=== PATIENT | male | born 1945 | race Caucasian/White ===

== ENCOUNTER 2017-11-11 06:10 | Day surgery (SDC) | payer OTHER ==
[~2017-11-11] VITALS: Ht 172.7 cm; Wt 85.1 kg
[~2017-11-11 06:10] MED LIST: ASPI325T PO; ATOR40TA49 PO; GLIP10TA6 PO; GLUC1000 PO; LISI20 PO; OXYC1SOL5 PO; PANT40IN3 PO; PLAV75TA PO; TRAD5TAB PO
[2017-11-11] MEDS ORDERED: IOHEXOL 350 MG/ML 50 ML BTL (for Cath Lab) OTHER ONE (06:11)
[2017-11-11] MEDS ORDERED: IOHEXOL 350 MG/ML 100 ML BTL (for Cath Lab) OTHER ONE (06:11)
[2017-11-11] MEDS ORDERED: SODIUM CHLOR 0.9% 1000 ML INJ 1,000 ML IV SCH (06:45)
[2017-11-11 06:54] VITALS: BP 157/80; PULSE 94; RESP 18; TEMP 98.8; O2SAT 93
[2017-11-11] MEDS ORDERED: CLOP75TA PO (07:14)
[2017-11-11] MEDS ORDERED: PANT40TA3 PO (07:14)
[2017-11-11] MEDS ORDERED: LISI-515 PO (07:14)
[2017-11-11] MEDS ORDERED: ATOR40TA16 PO (07:14)
[2017-11-11] MEDS ORDERED: METF1000 PO (07:14)
[2017-11-11] MEDS ORDERED: GLIP10TA6 PO (07:14)
[2017-11-11] MEDS ORDERED: ASPI-516 CHEW (07:14)
[2017-11-11] MEDS ORDERED: LEVEMIR SQ (07:14)
[2017-11-11] MEDS ORDERED: diphenhydrAMINE HCL 50 MG/ML VIAL IV PUSH SCH (07:45)
[2017-11-11] MEDS ORDERED: HEPARIN-NS/PF INJ 1,500 ML ONE (09:04)
[2017-11-11] MEDS ORDERED: MIDAZOLAM HCL 2 MG/2 ML VIAL ONE ×2 (09:05→09:58)
[2017-11-11] MEDS ORDERED: diphenhydrAMINE HCL 50 MG/ML VIAL ONE (09:35)
[2017-11-11] MEDS ORDERED: HEPARIN SODIUM - IV 10,000 UNITS/10 ML VIAL ONE (09:44)
[2017-11-11] MEDS ORDERED: BIVALIRUDIN 250 MG VIAL ONE (09:47)
[2017-11-11] MEDS ORDERED: CLOPIDOGREL 300 MG TAB ONE (10:26)
[2017-11-11] MEDS ORDERED: BIVALIRUDIN INJ 250 MG in SODIUM CHLORIDE 0.9% INJ 50 ML IV SCH (10:36)
[2017-11-11] MEDS ORDERED: METO25TA3 PO (10:43)
[2017-11-11] MEDS ORDERED: oxyCODONE/ACETAMINOPHEN 5 MG/325 MG TAB PO PRN (10:45)
[2017-11-11] MEDS ORDERED: CLOPIDOGREL 300 MG TAB PO ONE (10:45)
[2017-11-11] MEDS ORDERED: LIDOCAINE HCL 1% 50 ML VIAL INFIL PRN (10:45)
[2017-11-11] MEDS ORDERED: oxyCODONE/ACETAMINOPHEN 10 MG/325 MG TAB PO PRN (10:45)
[2017-11-11] MEDS ORDERED: MISC INFORMATION XX ONE (10:45)
[2017-11-11] MEDS ORDERED: LORazepam 2 MG/ML VIAL IV PUSH PRN (10:45)
[2017-11-11] MEDS ORDERED: ACETAMINOPHEN 325 MG TAB PO PRN (10:45)
[2017-11-11] MEDS ORDERED: ATROPINE SULFATE 1 MG/ML VIAL IV PUSH PRN (10:45)
[2017-11-11] MEDS ORDERED: MORPHINE SULFATE 4 MG/ML INJ IV PUSH PRN (10:45)
--- NOTE | 2017-11-11 10:55 | CATHPROC ---
[facility] HIS Report Study Information Study Number Admission Scheduled Start Study Start [id number] Nov 11 2017 6:10AM 11/11/2017 Nov 11 2017 9:00AM [place] [facility] Cardiac Catheterization Admit Source Facility Department Other [facility] - Glass Blowing Lathe Operator Physician and Clinical Staff Initial Tyler Fischer Environmental Engineering Technician Bhupinder Ortega RN Recorder Luis Daniel Esqueda,RT(R) Foreign [place],RT(R) Procedures Performed Procedure Location (Site) Vessel Name Coronary Angiograms LCA Left Coronary Coronary Angiograms RCA Right Coronary Drug Eluting Inflatio CIRC Prox CIRC Drug Eluting Inflatio OM1 Mid CIRC Drug Eluting Inflatio RCA Dist Right Coronary PTCA OM1 Mid CIRC PTCA RCA Dist Right Coronary Wire insertion Fem Art (right) Femoral Art Equipment Time Decaler Description Size Mfg Part Number Used/Scraped COPILOT VALVE, BLEEDBACK [id number] 09:47 [employer] Used CONTROL *[id number] TRANSDUCER, TRUWAVE [id number] 09:17 YANG JOSUE * Used W/STOCKCOCK *[id number] 10:27 [facility] MEDICAL VASCADE, FR6 CLOSURE SYSTEM FR 6\\7 Used *[id number] [id number] *[id number] [phone] *[id number] [phone] *[id number] 09:17 [employer] INDUSTRIES PACK, CCL CUSTOM * Used *[id number] 09:17 [employer] PACER PEN, SKIN DUAL W/ RULER * Used *[id number] 09:54 [employer]ON[employer] BALLOON, 2.0 X 15MM EUPHORA 15MM Used *[id number] 09:38 [employer]TRON[employer] JR 4.0 DXTERITY CATHETER FR 5 [id number] Used [id number] 09:59 [employer]TR[employer]IC STENT, 2.25 18MM LENNY 2.25 18MM Used *[id number] 10:11 [employer] STENT, 2.25 18MM LENNY 2.25 18MM Used *[id number] [id number] 10:21 [employer]TR[employer]IC STENT, 2.5 18MM LENNY 2.5 18MM Used *[id number] 09:58 [employer] 30 ANGELA INDEFLATOR Used *[id number] 09:17 [employer] WIRE, 3MMJ .035 180CM 180CM Used *[id number] 09:17 NAMIC MANIFOLD, 4 PORT * Used *[id number] TUBING, PRESSURE MONITORING [id number] 09:26 NAMIC PACER 72" Used 72" *[id number] 09:17 [employer] OMNIPAQUE, 350 MG, 150ML 150ML [id number] Used [id number] 09:17 [employer]ES[employer] MED[employer] BLANKET,WARM AIR CCL * Used *[id number] 09:17 [employer]UM[employer] MEDICAL SHEATH, FR5 TERUMO (10CM) FR 5 Used *[id number] [id number] 09:47 [employer] MEDICAL SHEATH, FR6 TERUMO (10CM) FR 6 Used *[id number] [id number] 09:47 [employer] MEDICAL SHEATH, FR6 TERUMO (10CM) FR 6 Used *[id number] WIRE, RUNTHROUGH NS FLOPPY [id number] 09:47 [employer]UM[employer] MEDICAL 180CM Used .014 180CM *[id number] Equipment Model, Serial, Lot Number and Expiration Data Description Model Number Serial Number Lot Number Expiration Date STENT, 2.25 18MM LENNY [id number] 06-20-2019 STENT, 2.25 18MM LENNY [id number] 07-08-2019 STENT, 2.5 18MM LENNY [id number] 07-21-2019 History: Allergies Allergy Reaction No Known Allergies shellfish derived History: Risk Factors Family History of Hypertension Dyslipidemia Previous NH Previous Heart Failure Premature CAD Yes Yes No No No Prior Valve Prior PCI Prior CABG Surgery No No No Cerebrovascular Peripheral Artery Chronic Lung On Dialysis Diabetes Diabetes Therapy Disease Disease Disease No Yes Yes No Yes Oral History: Stress Tests Stress or Imaging Studies Performed No Labs Hgb (g/dl) Hct (%) WBC (l/cumm) Platelets (thousands) 11.60-17.00 35.00-51.00 4.00-11.00 150.00-450.00 13.3 41 6.1 244 Glucose (mg/dl) BUN (mg/dl) Creatinine (mg/dl) BUN:Creatinine (1:x) 74.00-106.00 7.00-18.00 0.50-1.30 10.00-20.00 271 17 1.0 17 Na (meq/l) K (meq/l) 136.00-145.00 3.50-5.10 140 4.8 CPK-MB (ng/ML) 0.50-3.60 Not Drawn Medication Medication Total Dose (Bolus/Oral) Medication Total Dosage/Unit 1% XYLOCAINE 20 mL ANGIOMAX BOLUS 13 mL FENTANYL 75 mcg PLAVIX 600 mg VERSED 3 mg Medications (Bolus/Oral) Medication Time Given Dosage/Unit Administered By Reason VERSED 11/11/2017 9:34:45 AM 2 mg Bhupinder Ortega 2 mg VERSED given in lab by Bhupinder Ortega RN in Left Antecubital via Peripheral IV. Ordered by Tyler Miguel. FENTANYL 11/11/2017 9:35:04 AM 50 mcg Bhupinder Ortega 50 mcg FENTANYL given in lab by Bhupinder Ortega RN in Left Antecubital via Peripheral IV. Ordered by Tyler Sanon. 1% XYLOCAINE 11/11/2017 9:37:01 AM 20 mL Tyler Sanon 20 mL 1% XYLOCAINE given in lab by Tyler Sanon in Right Groin via Subcutaneous. Ordered by Tyler Sanon. ANGIOMAX BOLUS 11/11/2017 9:50:25 AM 13 mL Bhupinder Ortega 13 mL ANGIOMAX BOLUS given in lab by Bhupinder Ortega RN via Peripheral IV. Ordered by Tyler Sanon. FENTANYL 11/11/2017 9:59:06 AM 25 mcg Bhupinder Ortega 25 mcg FENTANYL given in lab by Bhupinder Ortega RN via Peripheral IV. Ordered by Tyler Sanon. VERSED 11/11/2017 10:00:52 AM 1 mg Bhupinder Ortega 1 mg VERSED given in lab by Bhupinder Ortega RN via Peripheral IV. Ordered by Tyler Sanon. PLAVIX 11/11/2017 10:40:26 AM 600 mg Bhupinder Ortega 600 mg PLAVIX given in lab by Bhupinder Ortega RN via Oral. Ordered by Tyler Sanon. Medication (Drip) Medication Time Given Dosage/Unit Concentration/Unit Diluent (ml) Solution ANGIOMAX DRIP 11/11/2017 9:52:14 AM 1.75 mg/kg/hr 250 mg 50 NaCl .9 1.75 mg/kg/hr ANGIOMAX DRIP given in lab by Bhupinder Ortega, VALDEZ in Left Antecubital via Peripheral IV. Pump/Drip Flow = 29.75 ml/hr using NaCl .9 with a concentration of 250 mg in 50 ml. Ordered by Tyler Sanon. ANGIOMAX DRIP 11/11/2017 9:54:45 AM 1.75 mg/kg/hr 250 mg 50 NaCl .9 1.75 mg/kg/hr ANGIOMAX DRIP given in lab by Bhupinder Ortega, VALDEZ in Left Antecubital via Peripheral IV. Pump/Drip Flow = 29.75 ml/hr using NaCl .9 with a concentration of 250 mg in 50 ml. Ordered by Tyler Sanon. IV Solutions 11/11/2017 9:12:43 AM 0 mL (IV) 500 NaCl .9 Patient arrived on IV Solutions given by Tyler Sanon in Left Antecubital via Peripheral IV. Pump/D rip Flow = 20 ml/hr using NaCl .9. Ordered by Tyler Sanon. Initial Case Assessment Cardiovascular HR Rhythm NIBP 68 sr 144/88 Edema Present Skin color Skin None Normal Warm Dry Circulatory - Right Pulses Dorsalis Pedis Posterior Tibial Femoral d d 2 Scale (0,1,2,3,4,d) Circulatory - Left Pulses Dorsalis Pedis Posterior Tibial Femoral d d 2 Scale (0,1,2,3,4,d) Neurological State Oriented to time-place- Alert Moves all extremities person Respiration - General Respiration Rate SpO2 (%) O2 (lpm) (B/min) 18 96 0 Final Case Assessment Cardiovascular HR Rhythm NIBP Chest Pain 90 sr 148/86 0 Edema Present Skin color Skin None Normal Warm Dry Circulatory - Right Pulses Dorsalis Pedis Posterior Tibial Femoral d d 2 Scale (0,1,2,3,4,d) Circulatory - Left Pulses Dorsalis Pedis Posterior Tibial Femoral d d 2 Scale (0,1,2,3,4,d) Neurological State Oriented to time-place- Alert Moves all extremities person Respiration - General Respiration Rate SpO2 (%) O2 (lpm) (B/min) 18 98 0 Chronological Log Time Study Chronological Log 9:00:39 Patient arrived via Bed. 9:00:41 Patient Name, D.O.B, / Armband Verified By R.N. 9:00:42 Consent signed by the physician and the patient and verified by the Glass Blowing Lathe Operator staff. 9:00:43 Pre-op and post- op instructions given; patient acknowledges understanding of instructions. 9:01:23 Verbal Stimulation=2 Physical Stimulation=2 Airway=2 Respiration=2 TOTAL=8. (0=absent, 1=li mited, 2=present) 9:01:35 Presedation assessment performed by Glass Blowing Lathe Operator RN. 9:01:37 Patient has been NPO for More than 6Hrs. Vitals capture started with the following parameters, Patient=Adult, Interval=5 min, Initial Pr fpzgth=906 mmHg, 9:03:51 Deflation Rate=5 mmHg, Cuff placed on Right Arm 9:05:09 HR=82 bpm, QMWH=317/80 mmhg, SpO2=96.0 %, Resp=5 B/min, Smith=2 9:10:12 HR=64 bpm, IEWN=731/74 mmhg, SpO2=95.0 %, Resp=12 B/min, Smith=2 9:12:12 Reference ECG taken 9:12:35 A # 20 IV was noted in the Antecubital (left). Grade = 0 Patient arrived on IV Solutions given by Tyler Sanon in Left Antecubital via Peripheral IV. Pump/Drip Flow = 20 9:12:43 ml/hr using NaCl .9. Ordered by Tyler Sanon. 9:13:06 History and physical on the chart or being dictated. Assessment: Initial Case, HR=68 BPM, Rhythm=sr, AIJW=104/88 mmhg, Edema=None, Color=Normal, Skin = Warm, Dry Right Pulses: Lennox Ped=d, Post Tib=d, Femoral=2 9:13:09 Left Pulses: Lennox Ped=d, Post Tib=d, Femoral=2 Neurological: State=Alert, Ox3, CASTELLANO Respiration: Resp=18 B/min, SpO2=96 %, O2=0 lpm 9:13:43 Bilateral groins prepped with 2% chlorhexidine, and draped after a 3 minute waiting time. 9:15:25 HR=61 bpm, UKOE=091/69 mmhg, SpO2=97.0 %, Resp=22 B/min, Smith=2 9:18:55 Pressure channel 1 zeroed. 9:19:39 HR=76 bpm, BBRD=075/72 mmhg, SpO2=97.0 %, Resp=12 B/min, Smith=2 9:24:40 HR=57 bpm, DHBC=042/70 mmhg, SpO2=98.0 %, Resp=11 B/min, Smith=2 9:29:39 HR=58 bpm, VRZV=834/74 mmhg, SpO2=98.0 %, Resp=11 B/min, Smith=2 9:33:13 MD arrived. 9:34:41 HR=93 bpm, UJDO=869/63 mmhg, SpO2=96.0 %, Resp=30 B/min, Smith=2 9:34:45 2 mg VERSED given in lab by Bhupinder Ortega, VALDEZ in Left Antecubital via Peripheral IV. Ordere d by Tyler Sanon. 9:35:04 50 mcg FENTANYL given in lab by Bhupinder Ortega, VALDEZ in Left Antecubital via Peripheral IV. Or dered by Tyler Sanon. Time Out. Correct patient, correct procedure, correct physician, power not loaded with contrast with surgical team 9:36:33 present. Time Out Concurred by MD and individual staff in procedure. Not loaded at this time. 9:36:57 Presedation re-assessment performed by Glass Blowing Lathe Operator RN. 9:36:59 Case Start 9:37:01 20 mL 1% XYLOCAINE given in lab by Tyler Sanon in Right Groin via Subcutaneous. Ordered b y Tyler Sanon. 9:37:30 Access site was Right Femoral Artery. 9:37:47 A SHEATH, FR5 TERUMO (10CM) FR 5 was advanced into the Fem Art (right) using the Percutaneou s technique. A JL 4.0 INFINITI CATHETER FR 4 was advanced over a wire. OMNIPAQUE, 350 MG, 150ML 150ML was use d for 9:38:07 injections. 9:39:35 HR=79 bpm, VIIV=077/64 mmhg, SpO2=89.0 %, Resp=12 B/min, Smith=2 Recorded Pressure: Ao, HR=80, Condition=Condition 1 9:40:42 (Aorta) Ao 109/53/77 9:40:53 The LCA was injected and visualized at various angles. OMNIPAQUE, 350 MG, 150ML 150ML used. 9:42:26 Catheter was removed A JR 4.0 DXTERITY CATHETER FR 5 was advanced over a wire. OMNIPAQUE, 350 MG, 150ML 150ML was use d for 9:43:49 injections. 9:45:09 The RCA was injected and visualized at various angles. OMNIPAQUE, 350 MG, 150ML 150ML used. 9:45:11 HR=86 bpm, DCNO=034/72 mmhg, SpO2=93.0 %, Resp=14 B/min, Smith=2 9:46:21 Catheter was removed A SHEATH, FR6 TERUMO (10CM) FR 6 was exchanged in the Fem Art (right). This was necessary in ord er to 9:47:05 accomodate a larger catheter. 9:49:36 HR=83 bpm, UIYU=927/65 mmhg, SpO2=93.0 %, Resp=14 B/min, Smith=2 9:50:25 13 mL ANGIOMAX BOLUS given in lab by Bhupinder Ortega RN via Peripheral IV. Ordered by Tyler Sanon. A XB 3.5 GUIDE CATHETER FR 6 was advanced over a wire. OMNIPAQUE, 350 MG, 150ML 150ML was used f or 9:51:22 injections. 1.75 mg/kg/hr ANGIOMAX DRIP given in lab by Bhupinder Ortega, VALDEZ in Left Antecubital via Periphera l IV. Pump/Drip Flow 9:52:14 = 29.75 ml/hr using NaCl .9 with a concentration of 250 mg in 50 ml. Ordered by Tyler Sanon. 9:54:37 HR=80 bpm, MQGP=371/64 mmhg, SpO2=93.0 %, Resp=14 B/min, Smith=2 1.75 mg/kg/hr ANGIOMAX DRIP given in lab by Bhupinder Ortega, VALDEZ in Left Antecubital via Periphera l IV. Pump/Drip Flow 9:54:45 = 29.75 ml/hr using NaCl .9 with a concentration of 250 mg in 50 ml. Ordered by Tyler Sanon. 9:54:52 A WIRE, RUNTHROUGH NS FLOPPY .014 180CM 180CM was inserted via Fem Art (right). 9:56:53 Interventional wire has crossed the lesion A BALLOON, 2.0 X 15MM EUPHORA 15MM was inserted over WIRE, RUNTHROUGH NS FLOPPY .014 180CM 180C M via 9:57:20 the OM1 Mid. A BALLOON, 2.0 X 15MM EUPHORA 15MM over a WIRE, RUNTHROUGH NS FLOPPY .014 180CM 180CM in the OM 1 Mid 9:57:40 was inflated using a 30 ANGELA INDEFLATOR at 10 angela for 20 sec. 9:59:06 25 mcg FENTANYL given in lab by Bhupinder Ortega, RN via Peripheral IV. Ordered by Anuj Sanon. 9:59:38 HR=83 bpm, OZJK=454/67 mmhg, SpO2=93.0 %, Resp=15 B/min, Smith=2 9:59:52 Balloon Removed. A STENT, 2.25 18MM LENNY 2.25 18MM was advanced through a XB 3.5 GUIDE CATHETER FR 6 over a WIRE , 10:00:02 RUNTHROUGH NS FLOPPY .014 180CM 180CM. A STENT, 2.25 18MM LENNY 2.25 18MM was deployed using a 30 ANGELA INDEFLATOR at 12 atmospheres for 15 seconds 10:00:15 in the OM1 Mid. 10:00:52 1 mg VERSED given in lab by Bhupinder Ortega, VALDEZ via Peripheral IV. Ordered by Tyler Sanon . 10:02:13 Delivery device removed 10:04:37 HR=85 bpm, ILNR=924/76 mmhg, SpO2=94.0 %, Resp=12 B/min, Smith=2 10:09:38 HR=85 bpm, GGEU=989/77 mmhg, SpO2=94.0 %, Resp=14 B/min, Smith=2 A STENT, 2.25 18MM LENNY 2.25 18MM was advanced through a XB 3.5 GUIDE CATHETER FR 6 over a WIRE , 10:10:43 RUNTHROUGH NS FLOPPY .014 180CM 180CM. A STENT, 2.25 18MM LENNY 2.25 18MM was deployed using a 30 ANGELA INDEFLATOR at 14 atmospheres for 13 seconds 10:10:59 in the CIRC Prox. 10:13:19 Delivery device removed 10:13:27 Wire removed 10:13:30 Catheter was removed A JR 4.0 GUIDE CATHETER FR 6 was advanced over a wire. OMNIPAQUE, 350 MG, 150ML 150ML was used for 10:16:04 injections. 10:16:09 HR=90 bpm, PCVV=169/115 mmhg, SpO2=96.0 %, Resp=15 B/min, Smith=2 Recorded Pressure: LV, Ao, HR=99, Condition=Condition 1 10:16:23 (Left Ventricle) LV 169/3/26, (Aorta) Ao 156/70/111 10:17:11 A WIRE, RUNTHROUGH NS FLOPPY .014 180CM 180CM was inserted via Fem Art (right). 10:18:45 Interventional wire has crossed the lesion A BALLOON, 2.0 X 15MM EUPHORA 15MM was inserted over WIRE, RUNTHROUGH NS FLOPPY .014 180CM 180C M via 10:18:52 the RCA Dist. A BALLOON, 2.0 X 15MM EUPHORA 15MM over a WIRE, RUNTHROUGH NS FLOPPY .014 180CM 180CM in the RC A Dist 10:19:05 was inflated using a 30 ANGELA INDEFLATOR at 8 angela for 20 sec. 10:19:42 HR=89 bpm, ZEDV=752/101 mmhg, SpO2=96.0 %, Resp=18 B/min, Smith=2 10:20:50 Balloon Removed. A STENT, 2.5 18MM LENNY 2.5 18MM was advanced through a JR 4.0 GUIDE CATHETER FR 6 over a WIRE, 10:21:23 RUNTHROUGH NS FLOPPY .014 180CM 180CM. A STENT, 2.5 18MM LENNY 2.5 18MM was deployed using a 30 ANGELA INDEFLATOR at 14 atmospheres for 10 seconds in 10:21:37 the RCA Dist. 10:22:23 Delivery device removed 10:23:17 Wire removed 10:23:34 Catheter was removed 10:24:21 An injection in the Fem Art (right) was made through the SHEATH, FR6 TERUMO (10CM) FR 6. 10:24:41 HR=90 bpm, YHVN=453/84 mmhg, SpO2=97.0 %, Resp=18 B/min, Smith=2 10:28:05 VASCADE, FR6 CLOSURE SYSTEM FR 6\\7 placement in the Fem Art (right) Assessment: Final Case, HR=90 BPM, Rhythm=sr, JMOW=490/86 mmhg, Chest Pain=0, Edema=None, Duncan r=Normal, Skin = Warm, Dry Right Pulses: Lennox Ped=d, Post Tib=d, Femoral=2 10:29:21 Left Pulses: Lennox Ped=d, Post Tib=d, Femoral=2 Neurological: State=Alert, Ox3, CASTELLANO Respiration: Resp=18 B/min, SpO2=98 %, O2=0 lpm 10:29:42 HR=92 bpm, IQXT=748/86 mmhg, SpO2=96.0 %, Resp=19 B/min, Smith=2 10:32:20 Catheter(s) removed without difficulty 10:32:22 Case End 10:32:24 Sterile dressing applied to site 10:32:26 No case complications noted. 10:32:27 Cine recording checked. 10:32:29 Bedside Report will be given. 10:32:31 Implantable Device card placed in patient's chart. 10:32:33 Contrast Scanned 10:34:45 HR=93 bpm, TASL=671/119 mmhg, Resp=10 B/min, Smith=2 10:36:00 [facility] 10[facility]40[facility] 600 mg PLAVIX given in lab by Bhupinder Ortega, VALDEZ via Oral. Ordered by Tyler Sanon. End Study - Contrast Media Used In Study Contrast Total Opened (mL) Total Used (mL) Total Wasted (mL) Omnipaque 130 130 0 End Study - Maximum Contrast Load Max Contrast Load (mL) 425.0 End Study - Radiation Exposure Fluoro Time (minutes) 9.3 End Study - Patient Disposition Complications Transferred To Telemetry Bed
[2017-11-11] MEDS ORDERED: BACITRACIN OINT 0.9 GM PKT TOP ONE (11:00)
--- NOTE | 2017-11-11 11:20 | EKG ---
Date Performed: 11/11/2017 Time Performed: 07:04:48 PTAGE: 72 years EKG: Sinus rhythm with 1st degree A-V block. Indeterminate axis Abnormal ECG NO PREVIOUS TRACING DOCTOR: Tadeo Sanders Interpretating Date/Time 11/11/2017 11:18:43
--- NOTE | 2017-11-11 11:31 | MA ---
cc: MARYA SOTO DATE 11/11/2017 PROCEDURE PERFORMED 1. Fluoroscopy with interruption. 2. Coronary angiography 3. Percutaneous intervention with drug-eluting stents to the left circumflex coronary artery, first obtuse marginal branch, and posterolateral branch. 4. Left heart catheterization. METHOD The risks, benefits and alternatives discussed with the patient, the patient understood and consented to the procedure. PROCEDURE The patient brought into the catheterization lab, placed on the catheterization table. The right groin was prepped and draped in a sterile fashion. The right groin was anesthetized with 2% lidocaine, right common femoral is cannulated and a 5-Rwandan 11 cm sheath was placed without difficulty. CORONARY ANGIOGRAPHY 1. Left main coronary has a 40% stenosis in the mid to distal segment. There is some eccentric calcium present with a slight hazy appearance. It does not appear to have any high-grade obstructive disease. Overall, his general coronary anatomy is smaller caliber size vessels. In left main in comparison, he seems to have a reasonable luminal area. 2. Left anterior descending coronary artery has only minor luminal irregularities and gives rise to moderate-sized diagonal branch with minor luminal irregularities. 3. Left circumflex has a 75% proximal stenosis and an 80% tubular stenosis in the first obtuse marginal branch. 4. Right coronary artery is a dominant vessel giving rise to a posterior descending branch as a larger posterolateral branch which has a 90% proximal-mid stenosis. PERCUTANEOUS INTERVENTION The left groin was selectively engaged with a 6-Rwandan XB 3.5 guide catheter. A 0.014 inch, 180 cm Terumo run-through wire was navigated down the distal first obtuse marginal branch. A 2.0 x 15 mm RX balloon was deployed in the first obtuse marginal branch. Repeat angiography still shows severe residual stenosis. A 2.25 x 18 mm RX Resolute drug-eluting stent was advanced down the first obtuse marginal branch and deployed. A 2.25 x 18 mm RX Resolute drug-eluting stent was advanced down the proximal left circumflex coronary artery and deployed. Repeat angiography showed no residual stenosis. The left main looked unchanged compared to the diagnostic angiogram. The attention was then directed towards the right coronary artery. Right coronary selectively engaged with a 6-Rwandan JR-4 guide catheter. A 0.014 x 180 cm Terumo run-through wire was navigated down to the distal posterolateral branch. A 2.0 x 15 mm RX balloon was advanced down to the posterolateral branch and deployed. Repeat angiography shows severe residual stenosis 2.25 x 18 mm RX Resolute drug-eluting stent was advanced down the posterolateral branch and deployed. Repeat angiography showed no residual stenosis, OLVIN-III flow. The guide catheter was removed. The wire removed. The right groin sheath was then closed with a Vascade closure device with good hemostasis. Angiomax was administered throughout the entire procedure to maintain appropriate anticoagulation. LEFT HEART CATHETERIZATION Intraventricular hemodynamics measured 169/3 mmHg. CONCLUSION 1. Severe circumflex and posterolateral branch vessel stenosis. 2. Successful percutaneous intervention with drug-eluting stents to the first obtuse marginal branch extending back to the proximal left circumflex coronary artery. 3. Successful percutaneous intervention with drug-eluting stent to the posterolateral branch up 4. Normal left-sided filling pressures. PLAN We will monitor the patient closely for any post procedural complications. Continue with his Plavix that he takes on a regular basis. We will start a low-dose beta kym as his blood pressure and heart rate will tolerate. We will continue him on aspirin, statin, MONICA inhibitor therapy. Given the contrast administered and time taken for the coronary revascularization, we decided not to proceed with peripheral angiography or intervention. We will let him make a full recovery and bring him back electively to investigate the lower extremities with angiogram and possible intervention. MD ANUPAM Faulkner/SEGUNDO /10:42 AM /11:09 AM
[2017-11-11] MEDS ORDERED: ISOS30TA3 PO (12:29)
[2017-11-11] MEDS ORDERED: TEMAZEPAM 15 MG CAP PO PRN (21:00)
[2017-11-12] MEDS ORDERED: CLOPIDOGREL 75 MG TAB PO SCH (09:00)
[2017-11-12] MEDS ORDERED: ASPIRIN 81 MG CHEW TAB PO SCH (09:00)
--- NOTE | 2017-11-12 15:02 | EKG ---
Date Performed: 11/11/2017 Time Performed: 12:31:56 PTAGE: 72 years EKG: Sinus rhythm with 1st degree A-V block. Indeterminate axis Abnormal ECG Since PREVIOUS TRACING , no significant change noted PREVIOUS TRACIN11/11/2017 07.04 DOCTOR: Ashkan Gates Interpretating Date/Time 11/12/2017 15:01:10
== END 2017-11-11 17:33 | disposition home or self-care (01) ==
LOC: HCAT 06:10 → HDIC 06:11 → HCAT 17:33
PROVIDERS: ATTEND Internal Medicine
DX: I25.10 Atherosclerotic heart disease of native coronary artery without angina pectoris (principal); I73.9 Peripheral vascular disease, unspecified; R07.9 Chest pain, unspecified; I44.0 Atrioventricular block, first degree; Z87.891 Personal history of nicotine dependence; E11.51 Type 2 diabetes mellitus with diabetic peripheral angiopathy without gangrene; I10 Essential (primary) hypertension; E78.5 Hyperlipidemia, unspecified; R09.89 Other specified symptoms and signs involving the circulatory and respiratory systems; Z79.4 Long term (current) use of insulin
CPT/HCPCS: 86850; 86900; 86901; 92920; 92921; 93005; 93458; 99152; 99153; C1725; C1760; C1769; C1874; C1887; C1893; G0269; J0583; J1200; J1644; J2250; J3010; Q9967

== ENCOUNTER 2017-12-30 07:25 | Day surgery (SDC) | payer OTHER ==
[~2017-12-30] VITALS: Ht 172.7 cm; Wt 86.7 kg
[~2017-12-30 07:25] MED LIST changes: +ASPI-516 CHEW; -ASPI325T PO; +ATOR40TA16 PO; -ATOR40TA49 PO; +CLOP75TA PO; -GLUC1000 PO; +ISOS30TA3 PO; +LEVEMIR SQ; +LISI-515 PO; -LISI20 PO; +METO25TA3 PO; -OXYC1SOL5 PO; -PANT40IN3 PO; +PANT40TA3 PO; -PLAV75TA PO; -TRAD5TAB PO
[2017-12-30] MEDS ORDERED: IOHEXOL 350 MG/ML 100 ML BTL (for Cath Lab) OTHER ONE (07:26)
[2017-12-30] MEDS ORDERED: SODIUM CHLORIDE 0.9% FLUSH 10 ML FLUSH IV FLUSH PRN ×2 (07:45)
[2017-12-30] MEDS ORDERED: diphenhydrAMINE HCL 50 MG CAP PO SCH (07:45)
[2017-12-30 08:19] VITALS: BP 147/72; PULSE 85; RESP 18; TEMP 98.4; O2SAT 94
[2017-12-30] MEDS ORDERED: MULTTAB67 PO (08:23)
[2017-12-30] MEDS ORDERED: METF1000 PO (08:23)
[2017-12-30] MEDS ORDERED: HEPARIN-NS/PF FLUSH BAG 1,000 ML IV FLUSH ONE (11:13)
[2017-12-30] MEDS ORDERED: MIDAZOLAM HCL 2 MG/2 ML VIAL ONE ×2 (11:14→12:25)
[2017-12-30] MEDS ORDERED: HEPARIN SODIUM - IV 10,000 UNITS/10 ML VIAL ONE (11:17)
[2017-12-30] MEDS ORDERED: diphenhydrAMINE HCL 50 MG/ML VIAL ONE (11:56)
[2017-12-30] MEDS ORDERED: ONDANSETRON HCL 4 MG/2 ML VIAL IV PUSH PRN (13:15)
[2017-12-30] MEDS ORDERED: METOCLOPRAMIDE HCL 10 MG/2 ML VIAL IV PUSH PRN (13:15)
[2017-12-30] MEDS ORDERED: oxyCODONE/ACETAMINOPHEN 10 MG/325 MG TAB PO PRN (13:15)
[2017-12-30] MEDS ORDERED: MISC INFORMATION XX ONE (13:15)
[2017-12-30] MEDS ORDERED: SODIUM CHLOR 0.9% 250 ML INJ 250 ML IV PRN (13:15)
[2017-12-30] MEDS ORDERED: oxyCODONE/ACETAMINOPHEN 5 MG/325 MG TAB PO PRN (13:15)
[2017-12-30] MEDS ORDERED: LORazepam 2 MG/ML VIAL IV PUSH PRN (13:15)
[2017-12-30] MEDS ORDERED: ATROPINE SULFATE 1 MG/ML VIAL IV PUSH PRN (13:15)
[2017-12-30] MEDS ORDERED: LIDOCAINE HCL 1% 50 ML VIAL INFIL PRN (13:15)
--- NOTE | 2017-12-30 13:31 | CATHPROC ---
[employer] HIS Report Study Information Study Number Admission Scheduled Start Study Start [id number] Dec 30 2017 7:25AM 12/30/2017 Dec 30 2017 10:54AM [place] Service Cath Endovascular Study Admit Source Facility Department Other [facility] - Interior Design Director Physician and Clinical Staff Initial Tyler Fischer District Wildlife Manager Mariela Carney,RN District Wildlife ManagerBhupinder Mcleod,VALDEZ Recorder [place], Leida,TANK BUILDER TECH2 Scrub Hansel, Foreign,RT(R) Procedures Performed Procedure Location (Site) Vessel Name Angiogram (manual) Fem Sup. (right) Femoral Art Angiogram (manual) Popliteal R (R10) Popliteal Angiogram (manual) Tib, Post (right) Popliteal Angiogram LV Abd Aorta (A3) Aorta NON ACOUSTIC OPERATOR Popliteal R (R10) Popliteal Wire insertion Fem Art (left) Femoral Art Equipment Time Health Information Assistant Description Size Mfg Part Number Used/Scraped DBP- CARDIOVASCULAR CATHETER, STEALTH CLASSIC 12:26 [id number] Used SYSTEMS INC. 2.0MM *[id number] CARDIOVASCULAR VPR-[id number] 12:19 WIRE, FIRM (VIPER) 335 Used SYSTEMS INC. *[id number] 13:14 CARDIVA MEDICAL VASCADE, FR6 CLOSURE SYSTEM FR 6\\7 Used *[id number] 11:02 CORDIS/ GENI RIM SUPER TORQUE CATHETER FR 5 Used *[id number] *[id number] ENDOVASCULAR [id number] 12:51 STENT, EVERFLEX 7 X 100 120CM 7 X 100 Used COMPANY 120 BALLOON, ADMIRAL EXTREME 6 [id number] 12:39 [employer] 130CM Used X 80 130CM *[id number] BALLOON, ADMIRAL IN.PACT 6 X [id number] 12:45 [employer] 130CM Used 60 130CM *[id number] CATHETER, FR5 TRAILBLAZER [id number] 12:19 [employer] 135CM Used .035 *[id number] 11:02 MALLINCKRODT SYRINGE, ANGIOMAT 150ML 150ML [id number] Used [id number] 11:02 MEDLINE INDUSTRIES PACK, CCL CUSTOM * Used *[id number] 11:02 MEDLINE PACER PEN, SKIN DUAL W/ RULER * Used *[id number]- 12:58 Plastio MEDICAL SHEATH, FR6.5 PRELUDE 11CM FR 6.5 038ACT Used *[id number] 11:02 Plastio MEDICAL WIRE, EXCHANGE 260CM 3MMJ 260CM Used *[id number] 11:02 NAMIC MANIFOLD, 4 PORT * Used *1027275 [id number] 11:02 NAMIC TUBING, HIGH PRESSURE 48" 48" Used *[id number] 11:02 NYCOMED OMNIPAQUE, 300 MG, 150ML 150ML [id number] Used [id number] 11:02 [facility] [place],WARM AIR CCL * Used *[id number] JSV030 11:02 TERUMO MEDICAL SHEATH, FR5 TERUMO (10CM) FR 5 Used *[id number] SHEATH, FR6 PINNACLE [id number] 12:18 TERUMO MEDICAL/GENI FR 6 Used DESTINATION 45CM *[id number] WIRE, ANGLE GLIDE STIFF .035 [id number] 11:02 TERUMO MEDICAL/GENI 260CM Used 260CM *[id number] Equipment Model, Serial, Lot Number and Expiration Data Description Model Number Serial Number Lot Number Expiration Date CATHETER, FR5 TRAILBLAZER .035 [id number] 07-17-2020 STENT, EVERFLEX 7 X 100 120CM [id number] 07-30-2019 WIRE, FIRM (VIPER) 335 [id number] 08-23-2019 History: Current Medications Medication Dosage/Unit Route Frequency Last Date/Time Taken Glucophage Insulin LISINOPRIL LOPRESSOR Statins (any) Imdur ASA PLAVIX History: Allergies Allergy Reaction No Known Allergies shellfish derived History: Risk Factors Family History of Hypertension Dyslipidemia Previous [place] Previous Heart Failure Premature CAD Yes Yes No No No Prior Valve Prior PCI Prior CABG Surgery No No No Cerebrovascular Peripheral Artery Chronic Lung On Dialysis Diabetes Diabetes Therapy Disease Disease Disease No Yes Yes No Yes Oral History: Stress Tests Stress or Imaging Studies Performed No Labs Hgb (g/dl) Hct (%) WBC (l/cumm) Platelets (thousands) 11.60-17.00 35.00-51.00 4.00-11.00 150.00-450.00 12.5 38.2 9 301 Glucose (mg/dl) BUN (mg/dl) Creatinine (mg/dl) BUN:Creatinine (1:x) 74.00-106.00 7.00-18.00 0.50-1.30 10.00-20.00 166 35 1.2 29.2 Na (meq/l) K (meq/l) 136.00-145.00 3.50-5.10 143 4.4 Medication Medication Total Dose (Bolus/Oral) Medication Total Dosage/Unit 1% XYLOCAINE 20 mL BENADRYL 25 mg FENTANYL 75 mcg HEPARIN 5000 units NTG (IC) 700 mcg VERSED 3 mg Medications (Bolus/Oral) Medication Time Given Dosage/Unit Administered By Reason BENADRYL 12/30/2017 11:57:45 AM 25 mg Tyler Sanon 25 mg BENADRYL given in lab by Tyler Sanon in Left Antecubital via Peripheral IV. Ordered by Tyler Sanon. VERSED 12/30/2017 12:02:22 PM 2 mg FerlittoMarandaey 2 mg VERSED given in lab by Bhupinder Ortega RN in Left Antecubital via Peripheral IV. Ordered by Tyler Miguel. FENTANYL 12/30/2017 12:02:58 PM 50 mcg ZeeoBhupinder 50 mcg FENTANYL given in lab by Bhupinder Ortega RN in Left Antecubital via Peripheral IV. Ordered by Tyler Sanon. 1% XYLOCAINE 12/30/2017 12:05:55 PM 20 mL Tyler Sanon 20 mL 1% XYLOCAINE given in lab by Tyler Sanon in Left Groin via Subcutaneous. Ordered by Elaine Sanon. HEPARIN 12/30/2017 12:21:40 PM 5000 units Bhupinder Ortega 5000 units HEPARIN given in lab by Bhupinder Ortega RN in Left Antecubital via Peripheral IV. Ordered by Tyler Sanon. VERSED 12/30/2017 12:26:34 PM 1 mg Ferlitto, Bhupinder 1 mg VERSED given in lab by Bhupinder Ortega RN in Left Antecubital via Peripheral IV. Ordered by Tyler Miguel. FENTANYL 12/30/2017 12:26:54 PM 25 mcg Ferlitto, Bhupinder 25 mcg FENTANYL given in lab by Bhupinder Ortega RN in Left Antecubital via Peripheral IV. Ordered by Tyler Sanon. NTG (IC) 12/30/2017 12:30:53 PM 200 mcg Tyler Sanon 200 mcg NTG (IC) given in lab by Tyler Sanon via Intra-arterial. Ordered by Tyler Sanon. NTG (IC) 12/30/2017 12:34:25 PM 300 mcg Tyler Sanon 300 mcg NTG (IC) given in lab by Tyler Sanon via Intra-arterial. Ordered by Tyler Sanon. NTG (IC) 12/30/2017 12:40:17 PM 200 mcg Tyler Sanon 200 mcg NTG (IC) given in lab by Tyler Sanon via Intra-arterial. Ordered by Tyler Sanon. Medication (Drip) Medication Time Given Dosage/Unit Concentration/Unit Diluent (ml) Solution IV Solutions 12/30/2017 11:04:25 AM 0 mL (IV) 500 NaCl .9 Patient arrived on IV Solutions in Left Antecubital via Peripheral IV. Pump/Drip Flow = 20 ml/hr usin g NaCl .9. Initial Case Assessment Cardiovascular HR Rhythm NIBP Chest Pain 58 sr 160/73 0 Circulatory - Right Pulses Dorsalis Pedis Posterior Tibial Femoral d d 1 Scale (0,1,2,3,4,d) Circulatory - Left Pulses Dorsalis Pedis Posterior Tibial Femoral d d 1 Scale (0,1,2,3,4,d) Neurological State Oriented to time-place- Alert Moves all extremities person Respiration - General Respiration Rate SpO2 (%) (B/min) 12 96 Final Case Assessment Cardiovascular HR Rhythm NIBP Chest Pain 60 sr 136/71 0 Circulatory - Right Pulses Dorsalis Pedis Posterior Tibial Femoral d d 1 Scale (0,1,2,3,4,d) Circulatory - Left Pulses Dorsalis Pedis Posterior Tibial Femoral d d 1 Scale (0,1,2,3,4,d) Neurological State Oriented to time-place- Alert Moves all extremities person Respiration - General Respiration Rate SpO2 (%) (B/min) 13 96 Chronological Log Time Study Chronological Log 11:03:18 Patient arrived via Bed. Patient premedicated with prednisone. 11:03:19 Patient Name, D.O.B, / Armband Verified By R.N. 11:03:20 Consent signed by the physician and the patient and verified by the Interior Design Director staff. 11:03:21 Pre-op and post- op instructions given; patient acknowledges understanding of instructions. 11:03:22 Verbal Stimulation=2 Physical Stimulation=2 Airway=2 Respiration=2 TOTAL=8. (0=absent, 1=li mited, 2=present) 11:03:33 Anesthesia at bedside. Assumes care of patient. 11:03:34 Presedation assessment performed by Interior Design Director RN. 11:03:37 Patient has been NPO for More than 6Hrs. 11:03:38 Skin Breakdown-bandaged open wound noted on right forearm 11:04:09 Melissa Prominences Protected 11:04:10 A # 20 IV was noted in the Antecubital (left). Grade = patent 11:04:25 Patient arrived on IV Solutions in Left Antecubital via Peripheral IV. Pump/Drip Flow = 20 ml/hr using NaCl .9. 11:04:43 History and physical on the chart or being dictated. Vitals capture started with the following parameters, Patient=Adult, Interval=5 min, Initial Pr plyhuw=453 mmHg, 11:08:20 Deflation Rate=5 mmHg, Cuff placed on Right Ankle 11:09:01 HR=66 bpm, HYIN=241/73 mmhg, SpO2=96.0 %, Resp=12 B/min Assessment: Initial Case, HR=58 BPM, Rhythm=sr, HZCM=433/73 mmhg, Chest Pain=0 Right Pulses: Lennox Ped=d, Post Tib=d, Femoral=1 11:09:30 Left Pulses: Lennox Ped=d, Post Tib=d, Femoral=1 Neurological: State=Alert, Ox3, CASTELLANO Respiration: Resp=12 B/min, SpO2=96 % 11:13:43 Reference ECG taken 11:14:02 HR=73 bpm, DBJN=703/73 mmhg, SpO2=96.0 %, Resp=13 B/min 11:19:01 HR=65 bpm, SMDV=810/67 mmhg, SpO2=93.0 %, Resp=14 B/min 11:24:02 HR=59 bpm, TQOR=149/69 mmhg, SpO2=96.0 %, Resp=13 B/min 11:25:50 Bilateral groins prepped with 2% chlorhexidine, and draped after a 3 minute waiting time. 11:29:05 HR=60 bpm, SZJK=770/63 mmhg, SpO2=96.0 %, Resp=14 B/min 11:32:36 Pressure channel 1 zeroed. 11:34:02 HR=68 bpm, UFIO=030/67 mmhg, SpO2=94.0 %, Resp=15 B/min 11:39:01 HR=67 bpm, YZKL=756/67 mmhg, SpO2=95.0 %, Resp=15 B/min 11:44:41 HR=72 bpm, YXXQ=568/74 mmhg, SpO2=94.0 %, Resp=19 B/min 11:49:04 HR=62 bpm, RKMD=572/71 mmhg, SpO2=94 %, Resp=15 B/min 11:54:05 HR=56 bpm, SLEX=204/69 mmhg, SpO2=95.0 %, Resp=15 B/min 11:56:45 MD arrived. 11:57:45 25 mg BENADRYL given in lab by Tyler Sanon in Left Antecubital via Peripheral IV. Ordere d by Tyler Sanon. 11:59:02 HR=56 bpm, SFZX=724/73 mmhg, SpO2=96.0 %, Resp=12 B/min 11:59:03 HR=56 bpm, EIFD=237/73 mmhg, SpO2=96.0 %, Resp=12 B/min 12:02:22 2 mg VERSED given in lab by Bhupinder Ortega, VALDEZ in Left Antecubital via Peripheral IV. Order ed by Tyler Sanon. 12:02:58 50 mcg FENTANYL given in lab by Bhupinder Ortega, VALDEZ in Left Antecubital via Peripheral IV. O rdered by Tyler Sanon. Time Out. Correct patient, correct procedure, correct physician, power injector loaded with con trast with surgical team 12:03:13 present. Time Out Concurred by MD and individual staff in procedure. 12:04:05 HR=73 bpm, CLAE=176/74 mmhg, SpO2=91.0 %, Resp=7 B/min 12:05:34 Case Start 12:05:55 20 mL 1% XYLOCAINE given in lab by Tyler Sanon in Left Groin via Subcutaneous. Ordered b y Tyler Sanon. 12:07:11 Access site was Left Femoral Artery. 12:08:30 A WIRE, EXCHANGE 260CM 3MMJ 260CM was inserted via Fem Art (left). 12:09:06 HR=73 bpm, FTTR=063/67 mmhg, SpO2=93.0 %, Resp=12 B/min 12:09:57 A SHEATH, FR5 TERUMO (10CM) FR 5 was advanced into the Fem Art (left) using the Percutaneou s technique. A PIGTAIL ANG. INFINITI CATHETER FR 5 was advanced over a wire. OMNIPAQUE, 300 MG, 150ML 150ML was used 12:12:37 for injections. 12:12:54 The Abd Aorta (A3) was injected at 12 cc/sec for a total of 24. OMNIPAQUE, 300 MG, 150ML 15 0ML used. 12:14:01 HR=75 bpm, CIEA=897/68 mmhg, SpO2=93.0 %, Resp=11 B/min 12:14:23 A WIRE, EXCHANGE 260CM 3MMJ 260CM was inserted via Fem Art (left). After removing the current catheter a RIM SUPER TORQUE CATHETER FR 5 was advanced over a WIRE, EXCHANGE 12:14:38 260CM 3MMJ 260CM. Recorded Pressure: Ao, HR=75, Condition=Condition 1 12:15:08 (Aorta) Ao 120/51/77 12:15:35 Fem Sup. (right) angiogram, manually injected. 12:15:56 Popliteal R (R10) angiogram, manually injected. 12:16:07 Tib, Post (right) angiogram, manually injected. 12:19:04 HR=68 bpm, LTJU=198/63 mmhg, SpO2=95.0 %, Resp=13 B/min 12:20:04 A WIRE, ANGLE GLIDE STIFF .035 260CM 260CM was inserted via Fem Art (left). 12:20:27 Catheter was removed w/o difficulty A SHEATH, FR6 PINNACLE DESTINATION 45CM FR 6 was exchanged in the Fem Art (left). This was nece ssary in order 12:21:01 to accomodate a larger catheter. 12:21:40 5000 units HEPARIN given in lab by Bhupinder Ortega RN in Left Antecubital via Peripheral IV . Ordered by Tyler Sanon. 12:24:03 HR=71 bpm, NFCQ=603/59 mmhg, SpO2=94.0 %, Resp=11 B/min A CATHETER, FR5 TRAILBLAZER .035 135CM was advanced over a wire. OMNIPAQUE, 300 MG, 150ML 150ML was 12:24:19 used for injections. 12:24:35 The previous wire was exchanged for a WIRE, FIRM (VIPER) 335. 12:24:54 Catheter was removed w/o difficulty 12:25:16 An CATHETER, STEALTH CLASSIC 2.0MM catheter was inserted into the Fem Art (left). 12:26:34 1 mg VERSED given in lab by Bhupinder Ortega RN in Left Antecubital via Peripheral IV. Order ed by Tyler Sanon. 12::54 25 mcg FENTANYL given in lab by Bhupinder Ortega RN in Left Antecubital via Peripheral IV. O rdered by Tyler Sanon. 12:28:25 Passes made with the 2.0 Classic [place] in the RSFA 12:29:00 HR=77 bpm, ECCA=612/59 mmhg, SpO2=94.0 %, Resp=11 B/min 12:29:56 Passes made with the 2.0 Classic crown in the RSFA. 12:30:53 200 mcg NTG (IC) given in lab by Tyler Sanon via Intra-arterial. Ordered by Jennifer Sanon enLynn 12:31:54 Passes made in the RSFA with the 2.0 Classic [place]. 12:33:11 Passes made with the 2.0 [place] in the RSFA 12:34:01 HR=75 bpm, TTYK=525/65 mmhg, SpO2=94.0 %, Resp=11 B/min 12:34:25 300 mcg NTG (IC) given in lab by Tyler Sanon via Intra-arterial. Ordered by Jennifer Sanon 12:34:48 Passes made in the RSFA with the 2.0 Classic crown. 12:35:20 Catheter was removed w/o difficulty 12:37:00 Activated Clotting Time Drawn A BALLOON, ADMIRAL EXTREME 6 X 80 130CM 130CM was inserted over WIRE, FIRM (VIPER) 335 via the Popliteal R 12:37:10 (R10). 12:39:01 In the Popliteal R (R10) a BALLOON, ADMIRAL EXTREME 6 X 80 130CM 130CM was inflated to 6 at ms for 30 seconds. 12:39:06 HR=71 bpm, SDRR=670/63 mmhg, SpO2=95.0 %, Resp=11 B/min 12:39:33 Balloon Removed. 12:40:17 200 mcg NTG (IC) given in lab by Tyler Sanon via Intra-arterial. Ordered by Jennifer Sanon A BALLOON, ADMIRAL IN.PACT 6 X 60 130CM 130CM was inserted over WIRE, FIRM (VIPER) 335 via the Popliteal R 12:41:39 (R10). 12:42:23 In the Popliteal R (R10) a BALLOON, ADMIRAL IN.PACT 6 X 60 130CM 130CM was inflated to 6 at ms for 180 seconds. 12:44:03 HR=70 bpm, HROY=775/62 mmhg, SpO2=94.0 %, Resp=13 B/min 12:45:35 ACT (Normal Range 90-180) = 274 12:46:17 Balloon Removed. 12:49:03 A STENT, EVERFLEX 7 X 100 120CM 7 X 100 was advanced through a catheter over a WIRE, FIRM ( VIPER) 335. 12:49:04 HR=65 bpm, LTLB=819/64 mmhg, SpO2=94.0 %, Resp=12 B/min 12:52:44 Delivery device removed 12:54:05 HR=69 bpm, MQNU=581/65 mmhg, SpO2=94.0 %, Resp=13 B/min An injection in the Fem Art (right) was made through the SHEATH, FR6 PINNACLE DESTINATION 45CM FR 6. Sheath 12:54:51 pulled back into aorta. 12:56:50 A WIRE, EXCHANGE 260CM 3MMJ 260CM was inserted via Fem Art (left). A SHEATH, FR6.5 PRELUDE 11CM FR 6.5 was exchanged in the Fem Art (left). This was necessary in order to minimize 12:57:37 site leakage. 12:59:08 HR=60 bpm, HUPD=068/71 mmhg, SpO2=96.0 %, Resp=15 B/min 12:59:30 In the Fem Art (left) the SHEATH, FR6.5 PRELUDE 11CM FR 6.[address] by Tyler Sanon. 12:59:48 No case complications noted. 12:59:52 Cine recording checked. 13:00:03 Bedside Report will be given. 13:00:05 Implantable Device card placed in patient's chart. Assessment: Final Case, HR=60 BPM, Rhythm=sr, RSRO=796/71 mmhg, Chest Pain=0 Right Pulses: Lennox Ped=d, Post Tib=d, Femoral=1 13:00:07 Left Pulses: Lennox Ped=d, Post Tib=d, Femoral=1 Neurological: State=Alert, Ox3, CASTELLANO Respiration: Resp=13 B/min, SpO2=96 % 13:01:27 Peripheral Vascular Intervention Performed. 13:04:06 Vitals capture stopped. 13:07:16 Activated Clotting Time Drawn 13:08:28 Preparing to Vascade, left groin reprepped with Betadine. 13:10:41 ACT (Normal Range 90-180) = 223 13:11:33 VASCADE, FR6 CLOSURE SYSTEM FR 6\\7 placement in the Fem Art (left) 13:13:17 Case End 13:14:13 Manual pressure held 13:26:46 Sterile dressing applied to site 13:27:50 Patient moved to bed. 13:28:02 Patient transported to DOCU. End Study - Contrast Media Used In Study Contrast Total Opened (mL) Total Used (mL) Total Wasted (mL) Omnipaque 160 160 0 End Study - Maximum Contrast Load Max Contrast Load (mL) 361.2 End Study - Radiation Exposure Fluoro Time (minutes) 8.9 End Study - Sheaths Sheaths Pulled By Sheath Hold Time (min) Fab Tyler 12 End Study - Patient Disposition Complications Transferred To Interventional Outcome No Telemetry Bed successful
[2017-12-30] MEDS ORDERED: BACITRACIN OINT 0.9 GM PKT TOP ONE (14:00)
[2017-12-30] MEDS ORDERED: CLOPIDOGREL 300 MG TAB PO ONE (14:00)
--- NOTE | 2017-12-30 15:20 | MA ---
cc: Tyler Sanon MD 12/30/2017 PROCEDURE PERFORMED: 1. Fluoroscopy with interpretation. 2. Descending aortography. 3. Bilateral lower extremity peripheral angiography, first, second and third order visualization, interpretation. 4. Orbital rotational atherectomy and balloon angioplasty, drug-coated balloon of the right popliteal artery. 5. Orbital rotational atherectomy and endovascular stenting with self-expanding stent of the right superficial femoral artery. METHOD: The risks, benefits and alternatives were discussed with the patient. The patient understood and consented to the procedure. The patient was brought to the cardiac catheterization lab and placed on the catheterization table. The left groin was prepped and draped in a sterile fashion. The left groin was anesthetized with 2% lidocaine. The left common femoral artery was cannulated with a 5-Qatari, 11-cm sheath; this was placed without difficulty. DESCENDING AORTOGRAPHY: Descending aortography was performed in anterior and posterior views using a 24-cc contrast injection, good opacification. Descending aortography revealed mild infrarenal and descending aortic atherosclerosis. The bilateral renal arteries are widely patent. PERIPHERAL ANGIOGRAPHY: The right common internal and external iliac arteries are widely patent. The right common femoral and profunda arteries are widely patent. The right superficial femoral artery has an 85% stenosis in the mid-segment which is moderately calcified. The right popliteal artery has 90% stenosis, tubular, which is also calcified in the mid-segment. 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 They are collateralized via the peroneal distally. There is also severe disease in the runoff of the dorsalis pedis and posterior tibial arteries. The left internal, external common iliac arteries have minor luminal irregularities. The left common femoral and profunda arteries widely patent. Left superficial femoral artery has a 90% stenosis in the mid-segment. The left popliteal artery has mild luminal irregularities. There is two-vessel runoff in the left lower extremity. The anterior tibial is occluded. The posterior tibial and peroneal vessels have a 70% lesion at the bifurcation. This vessel has poor distal runoff. PERIPHERAL INTERVENTION: A 6-Qatari, 45-cm [employer] [place] sheath was advanced up and over the arch into the right common femoral artery. A 0.035-inch stiff-angle Glidewire was navigated behind a Trailblazer catheter, down into the distal peroneal vessel. Digital subtraction angiography did confirm intraluminal placement. A 0.014-inch, 335-cm Viper wire was navigated down into the distal peroneal vessel, the Trailblazer catheter removed. A 2.0-mm CSI atherectomy catheter was then prepped. Orbital rotational atherectomy was performed on six sequential passes, three in the superficial femoral artery and three in the popliteal artery at 90,000 and 120,000 revolutions per minute respectively. Repeat angiography showed severe residual stenosis. A 6.0 x 80-mm Medtronic balloon was deployed in the popliteal and superficial femoral arteries. A 6.0 x 60-mm Medtronic drug-coated balloon was then deployed for a prolonged inflation within the mid-popliteal artery. Repeat angiography showed mild to moderate residual stenosis. There was a small dissection but it was not flow limiting. Given the flexion of the joint space we elected not to proceed with endovascular stenting. There was a fairly large dissection flap within the mid-segment of the superficial femoral artery so we did decide to do endovascular stenting. A 7.0 x 100-mm Medtronic self-expanding stent was then deployed in the right mid-superficial femoral artery and post-dilated with the 6.0 x 80-mm Medtronic balloon to 14 atmospheres. Repeat angiography showed no residual stenosis, OLVIN-3 flow. The sheath was removed. A 6-Qatari Vascade hemostatic device was successfully deployed with good hemostasis. Heparin was administered throughout the entire procedure to maintain appropriate anticoagulation. CONCLUSIONS: 1. Successful percutaneous endovascular stenting with self-expanding stent in the right superficial femoral artery and drug-coated balloon angioplasty of the right popliteal artery after atherectomy. 2. Mild infrarenal descending aorta atherosclerosis. PLAN: The patient is already on Plavix, aspirin and statin therapy. We will continue those therapies. We will monitor him for any postprocedural complication. We will have to potentially stage him to come back for attempted revascularization of the left lower extremity. MD LAURA Barclay/SB , 01:18 PM , 03:18 PM
[2017-12-31] MEDS ORDERED: CLOPIDOGREL 75 MG TAB PO SCH (09:00)
[2017-12-31] MEDS ORDERED: ASPIRIN 81 MG CHEW TAB PO SCH (09:00)
--- NOTE | 2017-12-31 23:14 | EKG ---
Date Performed: 12/30/2017 Time Performed: 08:49:28 PTAGE: 72 years EKG: Sinus rhythm with PAC(s) with 1st degree A-V block. Abnormal ECG PREVIOUS TRACING : 11/11/2017 12.31 Since the prior tracing, there has been no significant paulino DOCTOR: Mars Curry Interpretating Date/Time 12/31/2017 23:13:41
== END 2017-12-30 17:52 | disposition home or self-care (01) ==
LOC: HDOC 07:25 → HDIC 07:26 → HDOC 17:52
PROVIDERS: ATTEND Internal Medicine
DX: I70.211 Atherosclerosis of native arteries of extremities with intermittent claudication, right leg (principal); I70.0 Atherosclerosis of aorta; I25.10 Atherosclerotic heart disease of native coronary artery without angina pectoris; I10 Essential (primary) hypertension; E78.5 Hyperlipidemia, unspecified; E11.9 Type 2 diabetes mellitus without complications; Z79.82 Long term (current) use of aspirin; Z79.4 Long term (current) use of insulin; Z95.5 Presence of coronary angioplasty implant and graft; Z87.891 Personal history of nicotine dependence
CPT/HCPCS: 36200; 36247; 37227; 75625; 75716; 85002; 86850; 86900; 86901; 93005; 99152; 99153; C1714; C1725; C1751; C1769; C1893; C2623; G0269; J1200; J1644; J2250; J3010; Q9967